=== PATIENT | male | born 1985 | race Caucasian/White ===

== ENCOUNTER 2017-04-28 09:13 | Emergency (ER) | payer BC ==
[~2017-04-28] VITALS: Ht 177.8 cm; Wt 107.5 kg
[2017-04-28 09:17] VITALS: BP 145/88
[2017-04-28] MEDS ORDERED: TEARS AGAIN15 ML BOTH EYES (10:41)
== END 2017-04-28 10:50 | disposition home or self-care (01) ==
LOC: EME 09:13
DX: H04.121 Dry eye syndrome of right lacrimal gland (principal)
CPT/HCPCS: 99281; 99284; 99285